=== PATIENT | female | born 1950 | race Caucasian/White ===

== ENCOUNTER 2018-06-11 13:19 | Inpatient (IN) | payer MEDICARE, OTHER ==
[~2018-06-11] VITALS: Ht 165.1 cm; Wt 104.3 kg
[~2018-06-11 13:19] MED LIST: ASPIRIN81 MG PO; CALCIUM500 M5 PO; CELEBREX100 M1 PO; IRON 100 PLUS PO; LISINOPRIL5 MG PO; MULTI VIT PO; TRAMADOL HCL50 MG PO; VITAMIN C1000 MG PO; ZOCOR20 M1 PO
[2018-06-14] VITALS (8 sets, daily range): BP systolic 117–138; BP diastolic 54–72
--- NOTE | 2018-06-14 12:45 | NUR ---
PT ADMITTED FROM OR VIA BED,PT ALERT AND ORIENTED, ADMISSION ASSESSMENT COMPLETED AT THIS TIME, SPOUSE AT BEDSIDE, PT COMPLAINS OF MILD HEADACHE, IVF INFUCING INTO 20G IN LEFT HAND IV SITE BENIGN, LUNGS CLEAR WITH NO SOB OR DISTRESS NOTED AND PT DENIES RESPIRATORY COMPLAINT. DRESSING TO R SHOULDER INTACT WITH SOME MILD SWELLING AND ECCHYMOSIS NOTED AROUND INCISION SITE, CAP REFILL AND GOOD MOVEMENT NOTED TO FINGERS, SKIN OTHERWISE INTACT PT STATES SHE HAS A HISTORY OF EZCEMA, BUT NO CURRENT FLAIR UPS/ISSUES WITH IT, SCD'S ON BILATERAL LE; PT EDUCATED REGARDING USAGE AND PURPOSE OF SCD'S; VERBALIZES UNDERSTANDING; ORIENTED TO ROOM AND UNIT; ALSO EDUCATED REGARDING ADVANCING DIET; INCENTIVE SPIROMETER USAGE AND TRAINING (WILL NOTIFY R.T.); IVF D/C'D; PAIN CONTROL AND ACTIVITY; ALL QUESTIONS ANSWERED AND PT VERBALIZES UNDERSTANDING. CALL JACKSON WITHIN REACH OF NON EFFECTED ARM, WILL CONTINUE TO MONITOR.
--- NOTE | 2018-06-14 13:10 | NUR ---
P[T PROVIDED WITH JUICE AND CRACKERS TO MONITOR PO INTAKE TOLERANCE, PT DENIES FOLLOWING SPECIAL DIET AT HOME, WILL MONITOR TOLERANCE AND ADVANCE DIET ACCORDINGLY ORDERED.
--- NOTE | 2018-06-14 13:58 | NUR ---
PT RESTING IN SEMI FOWLERS POSITION WITH VISITOR AT BEDSIDE;PT REPORTS HEAD AND RIGHT SHOULDER PAIN RATING 6/10 ON THE PAIN SCALE AND REQUESTS PAIN MEDICATION;PT MEDICATED WITH PRN PERCOCET 10/325MG 1 COMBO PO;PT DENIES ANY ADDITIONAL NEEDS AT THIS TIME;INSTRUCTED TO CALL FOR ASSISTANCE IF NEEDED;CALL LIGHT IN REACH;WILL CONTINUE TO MONITOR
--- NOTE | 2018-06-14 14:00 | NUR ---
PT MEDICATED FOR COMPLAINTS OF R SHOULDER PAIN AND HEADACHE, WILL MONITOR TOLERANCE, ALSO NOTIFED PROVIDER OF PT'S USAGE OF LAXATIVE DAILY AT HOME, PROVIDER WILL ADDRESS.
--- NOTE | 2018-06-14 14:54 | NUR ---
PT RESTING IN BED, SPOUSE GONE AT THIS TIME, TOLERATED CRACKERS AND JUICE WELL DIET ORDERED FOR PM MEAL, PT STATE PAIN IMPROVED, DIETARY AT BEDSIDE FOR MEAL CHOICE OPTIONS.
--- NOTE | 2018-06-14 15:36 | NUR ---
PT OOB AND AMBULATED TO BATHROOM WITH ONE MIN/MOD ASSIST, STEADY GAIT NOTED AND VOIDED 400 ML CLEAR YELLOW URINE, PROVIDED OWN [facility] AND AMBULATED BACK TO [facility] AT BEDSIDE, COMFROT MEASURES PROVIDED PT COMPLAINS OF MILD NAUSEA AND WILL MEDICATE ORDERED, CALL JACKSON WITHIN REACH, AND ALL NEEDS ADDRESSED.
--- NOTE | 2018-06-14 17:52 | NUR ---
SET UP ASSIST PROVIDED FOR PM MEAL, INCLUDING CUTTING UP FOOD AND OPENING ALL PKGS, RELATED TO PT SURGERY ON DOMINANT ARM, DECLONED OFFER TO ASSIST WITH FEED, CALL JACKSON WITHIN REACH, WILL CONTINUE TO MONITOR.
--- NOTE | 2018-06-14 19:10 | NUR ---
BEDSIDE REPORT RECEIVED FROM SUKHI MORAES. PT RESTING IN BED SEMI FOWLERS WITH EYES CLOSED; TOWEL OVER FACE AND LIGHTS ARE OFF. SHE C/O MODERATE HEADACHE, BUT STATES THAT THE LIGHTS OFF AND COFFEE ARE EFFECTIVE AND DECLINES MEDICATION. RESPIRATIONS EVEN AND UNLABORED ON ROOM AIR. DRESSING TO RIGHT SHOULDER CDI; SWELLING AND DISCOLORATION NOTED AROUND DRESSING. ICE APPLIED A THIS TIME. SCD'S ON TO BLE AND IS AT BESIDE; DEMONSTRATED USE. PLAN OF CARE DISCUSSED. PT ENCOURAGED TO VERBALIZE CONCERNS. STATES UNDERSTANDING. SAFETY MEASURES IN PLACE. CALL LIGHT WITHIN REACH.
--- NOTE | 2018-06-15 00:22 | NUR ---
PT ASLEEP AT THIS TIME ON LEFT SIDE; POSITIONED WITH PILLOWS; AWAKENS SPONTANEOUSLY FOR VS. REPORTS MILD PAIN TO INNER ARMPIT AREA AND MILD HEADACHE; 2 PERCOCET GIVEN AT HS. RESPIRATIONS EVEN AND UNLABORED ON ROOM AIR. IV SITE APPEARS HEALTHY AND FLUSHES. SAFETY MEASURES IN PLACE. CALL LIGHT WITHIN REACH.
[2018-06-15 00:26] VITALS: BP 132/71
[2018-06-15 04:30] VITALS: BP 152/74
--- NOTE | 2018-06-15 04:33 | NUR ---
NO ACUTE CHANGES IN CONDITION THROUGHOUT THE NIGHT. PT ONLY C/O MILD HEADACHE; DECLINES OFFER FOR PAIN MEDICATION. REPSIRATIONS EVEN AND UNLABORED. ICE TO SHOULDER; ELEVATED ON PILLOW FOR SWELLING. CALL LIGHT WITHIN REACH.
[2018-06-15 05:28] LABS: HEMATOCRIT 38.2 % (37.0-47.0); HEMOGLOBIN 12.7 g/dl (12.0-16.0); IMMATURE GRANULOCYTES 0.3 % (0.0-5.0); MEAN CELL VOLUME 94.1 fL CALC (80.0-100.0); MEAN CORPUSCULAR HGB 31.3 pG CALC (26.0-32.0); MEAN CORPUSCULAR HGB CONC 33.2 g/L CALC (32.0-36.0); NEUT# 5.44 thou/uL (2.00-7.15); RED BLOOD COUNT 4.06 mill/uL (4.20-5.60); RED CELL DISTRI WIDTH 12.5 % (11.5-15.5)
[2018-06-15 05:44] LABS: ALBUMIN 3.2 g/dL (3.2-5.0); ALKALINE PHOSPHATASE 50 u/l (38-126); BILIRUBIN, TOTAL 0.4 mg/dL (0.0-1.4); BUN 19 mg/dL (8-23); BUN/CREATININE RATIO 27 (12-20 (CALC)); CARBON DIOXIDE 27 mmol/l (22-30); CHLORIDE 105 mmol/l (95-108); CREATININE 0.7 mg/dL (0.5-1.0); GFR > 60 ML/MIN (>=60 (CALC)); GFR FOR AFR.AMER. > 60 ML/MIN (>=60 (CALC)); MAGNESIUM 1.9 mg/dL (1.6-2.3); SGOT/AST 44 u/l (9-36); SODIUM 139 mmol/l (137-146); TOTAL PROTEIN 5.9 g/dL (6.3-8.2)
[2018-06-15 05:45] LABS: ANION GAP 11 (6-22 (CALC)); POTASSIUM 4.4 mmol/l (3.5-5.1)
--- NOTE | 2018-06-15 07:00 | NUR ---
RECEIVED REPORT FROM WARREN ISBELL. PT RESTING IN BED. PSYCHIATRIC NP AT BEDSIDE. NO S/S OF DISTRESS. CALL JACKSON IN REACH. WILL CONTINUE TO MONITOR.
[2018-06-15 08:13] VITALS: BP 137/56
--- NOTE | 2018-06-15 08:13 | NUR ---
PT RESTING IN BED AT THIS TIME. C/O HEADACHE AND MILD PAIN IN SHOULDERS,MEDICATED PER ORDER. ASSESMENT COMPLETED AT THIS TIME(SEE INTERVENTION). LUNG SOUNDS CLEAR/DIMINISHED WITH RLL DIMINISHED. BOWEL SOUNDS ACTIVE. HEART SOUNDS NORMAL. RIGHT SHOULDER DRESSING CDI, TRACE EDEMA TO AREA, ECCHYMOSIS NOTED WELL. # 20 LHAND FLUSHES WELL. NO REDNESS OR EDEMA NOTED. NO OTHER COMPLAINTS AT THIS TIME. CALL JACKSON IN REACH. WILL CONTINUE TO MONITOR.
--- NOTE | 2018-06-15 09:51 | NUR ---
RECEIVED REPORT FROM WARREN ISBELL. PT RESTING IN BED. TRAINING SYSTEMS OFFICER AT BEDSIDE. NO S/S OF DISTRESS. CALL JACKSON IN REACH. WILL CONTINUE TO MONITOR.
[2018-06-15 11:10] VITALS: BP 129/59
--- NOTE | 2018-06-15 11:37 | NUR ---
DR ODONNELL IN TO SPEAK WITH PT. PLAN OF CARE DISCUSSED. D/C HOME WITH HOME HEALTH. PT APPRECIATIVE. NO NEEDS AT THIS TIME. CALL JACKSON IN REACH. WILL CONTINUE TO MONITOR.
--- NOTE | 2018-06-15 14:06 | NUR ---
Spoke to patient about medications , patient had no quesitons
[2018-06-15] MEDS ORDERED: ZOFRAN ODT4 MG PO (14:57)
[2018-06-15] MEDS ORDERED: HYDROCO/APAP1 T10 PO (15:55)
--- NOTE | 2018-06-15 16:17 | NUR ---
Discharge instructions given. Patient verbalizes understanding of same. Discharged in stable condition via Wheelchair to Home with staff. All belongings sent with pt.
== END 2018-06-15 16:18 | disposition home health service (06) | DRG 483 ==
LOC: MS2 06-14 07:14 → EDUNIT# 06-14 16:15 → MS2 06-14 16:15
PROVIDERS: Internal Medicine Nephrology; ADMIT Orthopaedic Surgery; ATTEND Internal Medicine
PROC: 0RRJ00Z Replacement of Right Shoulder Joint with Reverse Ball and Socket Synthetic Substitute, Open Approach (ICD-10-PCS; principal; 2018-06-14)
PROC: 0LS30ZZ Reposition Right Upper Arm Tendon, Open Approach (ICD-10-PCS; 2018-06-14)
PROC: 3E0T3BZ Introduction of Anesthetic Agent into Peripheral Nerves and Plexi, Percutaneous Approach (ICD-10-PCS; 2018-06-14)
DX: M75.121 Complete rotator cuff tear or rupture of right shoulder, not specified as traumatic (principal); M19.011 Primary osteoarthritis, right shoulder; S43.431A Superior glenoid labrum lesion of right shoulder, initial encounter; S46.211A Strain of muscle, fascia and tendon of other parts of biceps, right arm, initial encounter; I10 Essential (primary) hypertension; E78.5 Hyperlipidemia, unspecified; E66.9 Obesity, unspecified; X58.XXXA Exposure to other specified factors, initial encounter; Z68.38 Body mass index [BMI] 38.0-38.9, adult; Z87.891 Personal history of nicotine dependence
CPT/HCPCS: J0131; J2710

== ENCOUNTER 2018-10-06 11:00 | Outpatient (RCR) | payer MEDICARE, OTHER ==
[~2018-10-06 11:00] MED LIST changes: +HYDROCO/APAP1 T10 PO; +ZOFRAN ODT4 MG PO
== END 2018-10-06 12:00 | disposition home or self-care (01) ==
LOC: PT 11:00
PROVIDERS: ATTEND Orthopaedic Surgery
DX: Z47.1 Aftercare following joint replacement surgery (principal); Z96.611 Presence of right artificial shoulder joint

== ENCOUNTER 2021-08-30 12:27 | Emergency (ER) | payer MEDICARE, OTHER ==
[~2021-08-30] VITALS: Ht 165.1 cm; Wt 100.0 kg
[2021-08-30 13:28] VITALS: BP 165/72
== END 2021-08-30 13:38 | disposition home or self-care (01) ==
LOC: ED 12:27
PROC: 2W3JX1Z Immobilization of Right Finger using Splint (ICD-10-PCS; principal; 2021-08-30)
DX: S62.632A Displaced fracture of distal phalanx of right middle finger, initial encounter for closed fracture (principal); I10 Essential (primary) hypertension; W19.XXXA Unspecified fall, initial encounter

== ENCOUNTER 2024-09-11 15:11 | Emergency (ER) | payer MEDICARE, OTHER ==
[~2024-09-11] VITALS: Ht 165.1 cm; Wt 99.7 kg
[2024-09-11 15:44] VITALS: BP 173/66
[2024-09-11] MEDS ORDERED: KEFLEX500 MG PO (16:39)
[2024-09-11 16:43] VITALS: BP 173/66
[2024-09-11] MEDS ORDERED: Diph, Acellular Pertussis, Tet 0.5 ML/VIAL (Tdap) SDV IM ONE (16:45)
== END 2024-09-11 17:01 | disposition home or self-care (01) ==
LOC: ED 15:11
DX: S61.210A Laceration without foreign body of right index finger without damage to nail, initial encounter (principal); I10 Essential (primary) hypertension; W27.8XXA Contact with other nonpowered hand tool, initial encounter
CPT/HCPCS: 90715